=== PATIENT | male | born 1970 | race African-American/Black ===

== ENCOUNTER 2020-01-27 06:56 | Emergency (ER) | payer BC ==
--- NOTE | 2020-01-27 08:07 | ER Document Report ---
ED General - General Chief Complaint: Cough Stated Complaint: COUGH Time Seen by Provider: 01/27/20 07:48 Mode of Arrival: Ambulatory Information source: Patient Notes: triage note patient presents to ED for c/o cough. patient states he has had the cough since April of 2019. patient states the cough comes and goes and it is always a dry, nonproductive cough. patient states the coughing gives him pain in the right upper back. patient denies any chest pain or sore throat. patient alert and oriented, breaths e/u, in NAD, lung sounds cta. 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 Patient reports since last April he was having more allergy problems. Patient reports he initially last year became very ill with a sore throat myalgias cough and rhinorrhea and right flank pain. Patient reports this periodically reoccurs and last week his neighbor was cutting grass and immediately after getting out of his car he got a spray of grass fibers and within 2 hours he was having symptoms of 1 day of myalgias and rhinorrhea despite using Flonase that was prescribed to him. He denies any history of urticaria or skin lesions or nuchal rigidity or cephalgia or fever chills or coronavirus exposure. He was encouraged to come to the ER by his and brother. TRAVEL OUTSIDE OF THE [place] IN LAST 30 DAYS: No - HPI Onset: Last week - but present since last Apr 2019 - Related Data Allergies/Adverse Reactions: No Known Allergies Allergy (Verified 06/05/12 22:18) Home Medications: Lisinopril. Amlodipine. Metformin Past Medical History - General Information source: Patient - Social History Smoking Status: Never Smoker Cigarette use (# per day): No Chew tobacco use (# tins/day): No Smoking Education Provided: No Frequency of alcohol use: None Drug Abuse: None Family History: Reviewed & Not Pertinent Patient has suicidal ideation: No Patient has homicidal ideation: No - Past Medical History Cardiac Medical History: Reports: Hx Hypertension Endocrine Medical History: Denies: Hx Diabetes Mellitus Type 2 - borderline Review of Systems - Review of Systems Constitutional: See HPI, Malaise, Weakness EENT: See HPI, Nose congestion Cardiovascular: No symptoms reported Respiratory: See HPI, Cough Gastrointestinal: No symptoms reported Genitourinary: No symptoms reported Male Genitourinary: No symptoms reported Musculoskeletal: No symptoms reported Skin: No symptoms reported Hematologic/Lymphatic: No symptoms reported Neurological/Psychological: No symptoms reported Physical Exam - Vital signs Vitals: Temp 97.9 F 01/27/20 06:57 Interpretation: Normal - General General appearance: Appears well - HEENT Head: Normocephalic, Atraumatic Eyes: Normal Pupils: PERRL Sinus: Maxillary Nasal: Clear rhinorrhea Mouth/Lips: Normal Mucous membranes: Normal Pharynx: Erythema Neck: Normal - Respiratory Respiratory status: No respiratory distress Chest status: Nontender Breath sounds: Normal Chest palpation: Normal - Cardiovascular Rhythm: Regular Heart sounds: Normal auscultation Murmur: No - Abdominal Inspection: Normal Distension: No distension Bowel sounds: Normal Tenderness: Nontender Organomegaly: No organomegaly - Back Back: Normal - Extremities General upper extremity: Normal inspection General lower extremity: Normal inspection - Neurological Neuro grossly intact: Yes Cognition: Normal Orientation: AAOx4 Paz Coma Scale Eye Opening: Spontaneous [place] Coma Scale Verbal: Oriented [place] Coma Scale Motor: Obeys Commands Paz Coma Scale Total: 15 Speech: Normal Motor strength normal: LUE, RUE, LLE, RLE Sensory: Normal - Psychological Associated symptoms: Normal affect - Skin Skin Temperature: Warm Skin Moisture: Dry Course - Vital Signs Vital signs: Temp Pulse Resp BP Pulse Ox 97.9 F 60 16 137/85 H 98 01/27/20 07:03 01/27/20 07:03 01/27/20 07:03 01/27/20 07:03 01/27/20 07:03 - Diagnostic Test Radiology reviewed: Reports reviewed Critical Care Note - Critical Care Note Total time excluding time spent on procedures (mins): 60 Discharge - Discharge Clinical Impression: Allergic bronchitis with acute exacerbation Condition: Good Disposition: HOME, SELF-CARE Additional Instructions: Follow-up with personal doctor this week return to ER as needed avoid contact with pollens or with grasses if possible by wearing mask. Also wear glasses if you are in vicinity of any allergic materials. And take medicines as directed. Prescriptions: Azelastine HCl 205.5 mcg NS BID PRN #1 bottle PRN Reason: rhinitis Dexamethasone [Decadron 4 Mg Tablet] 4 mg PO DAILY #5 tablet Albuterol Sulfate [Proair HFA Inhalation Aerosol 8.5 gm MDI] 2 puff IH Q4H PRN #1 mdi PRN Reason: Forms: Return to Work
--- NOTE | 2020-01-27 08:52 | RADIOLOGY REPORT (SQ) ---
EXAM DESCRIPTION: CHEST 2 VIEWS IMAGES COMPLETED DATE/TIME: 01/27/2020 8:13 am REASON FOR STUDY: cough since last yr COMPARISON: 06/05/2012 EXAM PARAMETERS: NUMBER OF VIEWS: two views TECHNIQUE: Digital Frontal and Lateral radiographic views of the chest acquired. RADIATION DOSE: NA LIMITATIONS: none FINDINGS: LUNGS AND PLEURA: No opacities, masses or pneumothorax. No pleural effusion. MEDIASTINUM AND HILAR STRUCTURES: No masses or contour abnormalities. HEART AND VASCULAR STRUCTURES: Heart normal size. No evidence for failure. BONES: No acute findings. HARDWARE: None in the chest. OTHER: No other significant finding. IMPRESSION: NO ACUTE RADIOGRAPHIC FINDING IN THE CHEST. TECHNICAL DOCUMENTATION: JOB ID: [id number] 2010 [employer]- All Rights Reserved Reading location - IP/workstation name: [email or web address]
[2020-01-27 09:53] VITALS: BP 128/74
== END 2020-01-27 09:51 | disposition home or self-care (01) ==
LOC: ER 06:56
DX: J45.901 Unspecified asthma with (acute) exacerbation (principal); R05 Cough; J34.89 Other specified disorders of nose and nasal sinuses; I10 Essential (primary) hypertension; R53.1 Weakness; R53.81 Other malaise; Z79.899 Other long term (current) drug therapy; Z79.84 Long term (current) use of oral hypoglycemic drugs
CPT/HCPCS: 71046; 99285